=== PATIENT | female | born 1990 | race Caucasian/White ===

== ENCOUNTER 2021-08-20 14:50 | Outpatient (RCR) | payer OTHER, SELFPAY ==
[2021-07-16 12:10] VITALS: BP 104/68; PULSE 81
[2021-07-19 16:07] VITALS: BP 114/69; PULSE 93
[2021-07-23 08:29] VITALS: BP 101/59; PULSE 99
--- NOTE | 2021-07-26 08:45 | PC.NURSE ---
Dr Zhong notified of non-reactive NST. Order for BPP and Accu check. May dc home if BPP is 8/8.
[2021-07-26 08:53] LABS: Glucose Point of Care 143 mg/dl (65-105)
[2021-07-26 09:20] VITALS: BP 102/61
[2021-07-30 08:05] VITALS: BP 124/74; PULSE 85
[2021-08-02 11:03] VITALS: BP 116/62; PULSE 89
[2021-08-06 16:00] VITALS: BP 114/74; PULSE 89
[2021-08-09 13:49] VITALS: BP 116/69; PULSE 81
[2021-08-13 15:54] VITALS: BP 113/65; PULSE 85
[2021-08-16 15:50] VITALS: BP 108/67; PULSE 84
--- NOTE | ~2021-08-20 | US_ITS ---
EXAMINATION: US OB BPP wo non-stress EXAM DATE: 08/20/2021 16:11 INDICATION: Gestational diabetes. 3rd trimester. TECHNIQUE: Pelvic obstetrical transabdominal sonogram was performed by a technologist. There are mu ltiple grayscale and Doppler images available for interpretation. There are no earlier studies of th is gestation for comparison. FINDINGS: There is a single fetus identified in vertex presentation with a heart rate of 147 beats pe r minute. The placenta is located in the posterior position. There is no sonographic evidence of ret roplacental hemorrhage identified. BIOPHYSICAL PROFILE (performed by the technologist) breathing (30 sec sustained breathing in 30 minutes): 2 out of 2 movement (3 gross body movements in 30 minutes): 2 out of 2 tone (one episode of jhxhepk-ccdlapkds-hsaiipp limb movement): 2 out of 2 Amniotic fluid pocket (2 cm): 2 out of 2 Total score: 8 out of 8 IMPRESSION: 1. Single fetus with heart rate of 147 bpm. 2. Normal biophysical profile score of 8 out of 8. Reviewed, dictated and finalized at location B. R TRANSPORTATION WORKER
--- NOTE | ~2021-08-20 | US_ITS ---
EXAMINATION: US OB BPP wo non-stress EXAM DATE: 08/06/2021 16:03 INDICATION: GDM BPP 3rd trimester. TECHNIQUE: Pelvic obstetrical transabdominal sonogram was performed by a technologist. There are mu ltiple grayscale and Doppler images available for interpretation. Comparison is made to prior examina tion from 07/26/2021. FINDINGS: There is a single fetus identified in vertex presentation with a heart rate of 156 beats pe r minute. The placenta is located in the posterior position. There is no sonographic evidence of ret roplacental hemorrhage identified. The amniotic fluid index is 13.9 centimeters, which is normal. BIOPHYSICAL PROFILE (performed by the technologist) breathing (30 sec sustained breathing in 30 minutes): 2 out of 2 movement (3 gross body movements in 30 minutes): 2 out of 2 tone (one episode of auvvefk-xpujqsyts-jdijakd limb movement): 2 out of 2 Amniotic fluid pocket (2 cm): 2 out of 2 Total score: 8 out of 8 IMPRESSION: 1. Single fetus with heart rate of 156 bpm. 2. Normal biophysical profile score of 8 out of 8. Reviewed, dictated and finalized at location A. STOCK EXHIBITOR
--- NOTE | ~2021-08-20 | US_ITS ---
EXAMINATION: US OB BPP wo non-stress EXAM DATE: 07/16/2021 12:01 INDICATION: Type II DM DM TYPE 2. 3rd trimester. TECHNIQUE: Pelvic obstetrical transabdominal sonogram was performed by a technologist. There are mu ltiple grayscale and Doppler images available for interpretation. Comparison is made to prior examina tion from 03/06/2019. FINDINGS: There is a single fetus identified in vertex presentation with a heart rate of 138 beats pe r minute. The placenta is located in the posterior position. There is no sonographic evidence of ret roplacental hemorrhage identified. BIOPHYSICAL PROFILE (performed by the technologist) breathing (30 sec sustained breathing in 30 minutes): 2 out of 2 movement (3 gross body movements in 30 minutes): 2 out of 2 tone (one episode of qtuyugw-zfmgsvmrb-xmttjws limb movement): 2 out of 2 Amniotic fluid pocket (2 cm): 2 out of 2 Total score: 8 out of 8 IMPRESSION: 1. Single fetus with heart rate of 138 bpm. 2. Normal biophysical profile score of 8 out of 8. Reviewed, dictated and finalized at location B. THINNER
--- NOTE | ~2021-08-20 | US_ITS ---
EXAMINATION: US OB BPP wo non-stress DATE: 07/26/2021 09:12 INDICATION: Nonreactive nonstress test. Third trimester. TECHNIQUE: Real-time pelvic ultrasound was performed. COMPARISON: Ultrasound 07/16/2021 FINDINGS: There is a single living fetus in vertex presentation. The placenta is posterior. heart rate i s 147 beats per minute (bpm). Biophysical profile performed by the technologist: breathing (30 sec sustained breathing in 30 minutes): 2 out of 2 movement (3 gross body movements in 30 minutes): 2 out of 2 tone (one episode of tsdzxyn-ahwlxiwqo-qqodcuo limb movement): 2 out of 2 Amniotic fluid pocket (2 cm): 2 out of 2 Total score: 8 out of 8 IMPRESSION: 1. Single living fetus in vertex presentation. 2. Biophysical profile 8 out of 8. Reviewed, dictated and finalized at location A. ICATOR FOAM RUBBER
--- NOTE | ~2021-08-20 | US_ITS ---
EXAMINATION: US OB BPP wo non-stress EXAM DATE: 08/13/2021 15:57 INDICATION: Diabetic GDM . 3rd trimester. TECHNIQUE: Pelvic obstetrical transabdominal sonogram was performed by a technologist. There are mu ltiple grayscale and Doppler images available for interpretation. Comparison is made to prior examina tion from 08/06/2021. FINDINGS: There is a single fetus identified in vertex presentation with a heart rate of 159 beats pe r minute. The placenta is located in the posterior position. There is no sonographic evidence of ret roplacental hemorrhage identified. There is subjectively expected amount of amniotic fluid. BIOPHYSICAL PROFILE (performed by the technologist) breathing (30 sec sustained breathing in 30 minutes): 2 out of 2 movement (3 gross body movements in 30 minutes): 2 out of 2 tone (one episode of vjjfbtw-dcjuuzpki-ypifgzl limb movement): 2 out of 2 Amniotic fluid pocket (2 cm): 2 out of 2 Total score: 8 out of 8 IMPRESSION: 1. Single fetus with heart rate of 159 bpm. 2. Normal biophysical profile score of 8 out of 8. Reviewed, dictated and finalized at location A. RMATION MANAGEMENT OFFICER
[2021-08-20 15:36] VITALS: BP 115/75; PULSE 84
== END 2021-09-03 20:36 | disposition home or self-care (01) ==
LOC: ANHOBOP 14:50
PROVIDERS: PCP Internal Medicine; Visit Provider Obstetrics & Gynecology
DX: O16.3 Unspecified maternal hypertension, third trimester (principal); O24.913 Unspecified diabetes mellitus in pregnancy, third trimester; Z3A.33 33 weeks gestation of pregnancy; Z3A.34 34 weeks gestation of pregnancy; Z3A.35 35 weeks gestation of pregnancy; Z3A.36 36 weeks gestation of pregnancy
CPT/HCPCS: 59025; 76819; 82948

== ENCOUNTER 2021-08-21 08:21 | Outpatient (CLI) | payer OTHER, SELFPAY ==
[2021-08-21 08:51] LABS: Basophils Absolute Auto 0.1 K/mm3 (0.0-0.1); Basophils Percent Auto 0.7 % (0.2-1.2); Eosinophils Absolute Auto 0.4 K/mm3 (0-0.3); Eosinophils Percent Auto 3.1 % (0-4.4); Hematocrit 37.9 % (37.0-47.0); Hemoglobin 12.6 g/dL (12.0-15.0); Immature Granulocyte Absolute 0.06 K/mm3 (0.00-0.031); Immature Granulocyte Percent A 0.5 % (0-0.5); Lymphocytes Absolute Auto 2.85 K/mm3 (0.9-3.2); Lymphocytes Percent Auto 24.5 % (18.3-44.2); Mean Corpuscular HGB Conc 33.2 g/dl (32-36); Mean Corpuscular Hemoglobin 27.3 pg (26-34); Monocytes Absolute Auto 0.5 K/mm3 (0.1-0.6); Monocytes Percent Auto 4.5 % (2.6-8.5); Neutrophils Absolute Auto 7.8 K/mm3 (1.3-6.7); Neutrophils Percent Auto 66.7 % (45.5-73.1); Platelet Count Result 304 k/mm3 (150-375); Red Blood Count 4.62 M/mm3 (4.2-5.4); Red Cell Distribution Width 14.3 % (11.5-14.5); White Blood Count 11.6 K/mm3 (4.5-10.0)
[2021-08-23 10:55] LABS: Rapid Plasma Reagin Non-Reactive (NonReactive)
== END 2021-08-21 08:22 | disposition home or self-care (01) ==
PROVIDERS: PCP Internal Medicine; Visit Provider Obstetrics & Gynecology
DX: Z01.818 Encounter for other preprocedural examination (principal)
CPT/HCPCS: 36415; 85025; 86592; 86850; 86900; 86901

== ENCOUNTER 2021-08-23 05:27 | Inpatient (IN) | payer OTHER, SELFPAY ==
[2021-08-23] VITALS (57 sets, daily range): BP systolic 87–123; BP diastolic 49–77; PULSE 47–80; RESP 10–18; TEMP 36.2–36.8; O2SAT 94–100; BMI 43.4
--- OUTSIDE RECORDS SUMMARY | 2021-08-23 05:32 | XMS_ITS | Encounter Summary ---
:1990 Author Care Team Providers Name Role Phone Chris Vidales MD Primary Care Provider [phone] Reason for Visit return OB visit Assessment and Plan 1. Gestational diabetes mellitus Discussion Note: None recorded.Patient educational handouts: No information available. Plan of Care Reminders Provider Appointments None ? ? recorded. Lab None ? ? recorded. Referral None ? ? recorded. Procedures None ? ? recorded. Surgeries None ? ? recorded. Imaging None ? ? recorded. Medications Name Start Date ? ? Afluria Quad 6466-9122 (PF) 60 mcg (15 mcg x 4)/0.5 mL IM syringe ? ADM 0.5ML IM UTD aspirin 81 mg tablet,delayed release ? Take 1 tablet every day by oral route. BD Ultra-Fine Kat Pen Needle 32 gauge x 5/32 ? BD Ultra-Fine Short Pen Needle 31 gauge x 5/16 ? USE FOR 2 INJECTIONS DAILY WITH INSULIN PENS Flucelvax Quad (PF) 60 mcg (15 mcg x 4)/0.5 mL IM syringe ? ADM 0.5ML IM UTD GlucaGen HypoKit 1 mg Injection ? Humalog KwikPen (U-100) Insulin 100 unit/mL subcutaneo us ? INJECT 6 UNITS UNDER THE SKIN WITH DINNER Humulin N NPH U-100 Insulin KwikPen 100 unit/mL (3 mL) subcutaneous ? ADMINISTER 10 UNITS UNDER THE SKIN DAILY labetalol 200 mg tablet ? OneTouch Verio test strips ? Ventolin HFA 90 mcg/actuation
--- OUTSIDE RECORDS SUMMARY | 2021-08-23 05:32 | XMS_ITS ---
:1990 Author Care Team Providers Name Role Phone OSMAN DACOSTA MD Primary Care Provider [phone] Allergies Code Code System Name Reaction Severity Status Onset NKDA ? Medications Name Status Start Date Stop Date ? ? Afluria Quad 8370-4510 (PF) 60 mcg (15 mcg x 4)/0.5 mL IM syring e Active ? Not available ADM 0.5ML IM UTD amoxicillin 875 mg-potassium Completed ? clavulanate 125 mg tablet aspirin 81 mg tablet,delayed release Active ? Not available Take 1 tablet every day by oral route. atorvastatin 10 mg tablet Completed ? 2018 azithromycin 250 mg tablet Completed ? 06/22 BD Ultra-Fine Mini Pen Needle 31 gauge Unknown ? Not available x 10/13 BD Ultra-Fine Kat Pen Needle 32 gauge Active ? Not available x BD Ultra-Fine Short Pen Needle 31 gauge x 16 Active ? Not available USE FOR 2 INJECTIONS DAILY WITH INSULIN PENS Bydureon BCise 2 mg/0.85 mL Completed ? 12/30 subcutaneous auto-injector codeine 10 mg-guaifenesin 100 mg/5 mL Completed ? 10/06/2017 oral liquid diclofenac sodium 75 mg tablet,delayed release Completed ? 06/22/2020 TAKE ONE TABLET DAILY Estarylla 0.25 mg-35 mcg tablet Completed ? 01/18/2021 Flucelvax Quad (PF) 60 mcg (15 mcg x 4)/0.5 mL IM syri nge Active ? Not available ADM 0.5ML IM UTD gatifloxacin 0.5 % eye drops Completed ? INT 1 GTT INTO OU QID FOR 5 DAYS
--- OUTSIDE RECORDS SUMMARY | 2021-08-23 05:32 | XMS_ITS | Encounter Summary ---
:1990 Author Care Team Providers Name Role Phone hCris Vidales MD Primary Care Provider [phone] Reason for Visit return OB visit Assessment and Plan 1. Gestational diabetes mellitus ? section (SURG) Discussion Note: None recorded.Patient educational handouts: No information available. Plan of Care Reminders Provider Appointments None ? ? recorded. Lab None ? ? recorded. Referral None ? ? recorded. Procedures None ? ? recorded. Surgeries ? Section (SURG) 06/21/2021 Imaging None ? ? recorded. Medications Name Start Date ? ? Afluria Quad 0956-0621 (PF) 60 mcg (15 mcg x 4)/0.5 [...]
--- OUTSIDE RECORDS SUMMARY | 2021-08-23 05:32 | XMS_ITS | Encounter Summary ---
:1990 Author Care Team Providers Name Role Phone hCris Vidales MD Primary Care Provider [phone] Reason for Visit return OB visit Assessment and Plan 1. Routine care ? HIV (1+2) Ab screen, serum ? hemoglobin + hematocrit, b lood Discussion Note: None recorded.Patient educational handouts: No information available. Plan of Care Reminders Provider Appointments None recorded. ? ? Lab HIV (1+2) Ab [facility] Screen, Serum 05/25/2021 [facility] (Lab) ? Hemoglobin + [facility] Hematocrit, Blood 05/25/2021 [facility] (Lab) Referral None recorded. ? ? Procedures None recorded. ? ? Surgeries None recorded. ? ? Imaging None recorded. ? ? Medications Name Start Date ? ? Afluria Quad 9555-0900 (PF) 60 mcg (15 mcg x 4)/0.5 mL IM syringe ? ADM 0.5ML IM UTD aspirin 81 mg tablet,delayed release ? Take 1 tablet every day by oral route. BD Ultra-Fine Kat Pen Needle 32 gauge x 5/32 ? BD Ultra-Fine Short Pen Needle 31 gauge x 5/16 ? USE FOR 2 INJECTIONS DAILY WITH INSULIN PENS Flucelvax Quad 5447-2789 (PF) 60 mcg (15 mcg x 4)/0.5 mL IM syringe ? ADM 0.5ML IM UTD
--- OUTSIDE RECORDS SUMMARY | 2021-08-23 05:32 | XMS_ITS ---
:1990 Author Care Team Providers Name Role Phone OSMAN DACOSTA MD Primary Care Provider Unavailable Allergies Code Code System Name Reaction Severity Status Onset NKDA ? Medications Name Status Start Date Stop Date ? ? Afluria Quad (PF) 60 mcg (15 mcg x 4)/0.5 mL IM syring e Active ? Not available ADM 0.5ML IM UTD amoxicillin 875 mg-potassium Completed ? clavulanate 125 mg tablet atorvastatin 10 mg tablet Completed ? 2018 azithromycin 250 mg tablet Completed ? 06/22 BD Ultra-Fine Mini Pen Needle 31 gauge Unknown ? Not available x 10/13 BD Ultra-Fine Short Pen Needle 31 gauge Active ? Not available x 12/13 Bydureon BCise 2 mg/0.85 mL Active ? Not available subcutaneous auto-injector codeine 10 mg-guaifenesin 100 mg/5 mL Completed ? 10/06/2017 oral liquid diclofenac sodium 75 mg tablet,delayed release Completed ? 06/22/2020 TAKE ONE TABLET DAILY Estarylla 0.25 mg-35 mcg tablet Active ? Not available Flucelvax Quad (PF) 60 mcg (15 mcg x 4)/0.5 mL IM syri nge Active ? Not available ADM 0.5ML IM UTD gatifloxacin 0.5 % eye drops Active ? Not available INT 1 GTT INTO OU QID FOR 5 DAYS Humalog KwikPen (U-100) Insulin 100 Completed ? 04/12/2019 unit/mL subcutaneous Humalog U-100 Insulin 100 unit/mL Completed ? 04/12/2019 subcutaneous solution Humulin N NPH U-100 Insulin (is
--- OUTSIDE RECORDS SUMMARY | 2021-08-23 05:32 | XMS_ITS | Encounter Summary ---
:1990 Author Care Team Providers Name Role Phone Chris Vidales MD Primary Care Provider [phone] Reason for Visit return OB visit Assessment and Plan 1. Routine care ? streptococcus group B, cul ture, vaginal or rectal Discussion Note: None recorded.Patient educational handouts: No information available. Plan of Care Reminders Provider Appointments None recorded. ? ? Lab Streptococcus [facility] Group B, Culture, V[facility] or Rectal Referral None recorded. ? ? Procedures None recorded. ? ? Surgeries None recorded. ? ? Imaging None recorded. ? ? Medications Name Start Date ? ? Afluria Quad 5084-2730 (PF) 60 mcg (15 mcg x 4)/0.5 mL IM syringe ? ADM 0.5ML IM UTD aspirin 81 mg tablet,delayed release ? Take 1 tablet every day by oral route. BD Ultra-Fine Kat Pen Needle 32 gauge x 5/32 ? BD Ultra-Fine Short Pen Needle 31 gauge x 5/16 ? USE FOR 2 INJECTIONS DAILY WITH INSULIN PENS Flucelvax Quad 4749-5158 (PF) 60 mcg (15 mcg x 4)/0.5 mL IM syringe ? ADM 0.5ML IM UTD GlucaGen HypoKit 1 mg Injection ? Humalog KwikPen (U-100) Insulin 100 unit/mL subcutaneo us ? INJECT 6 UNITS UNDER THE SKIN WITH DINNER Humulin N NPH U-100 Insulin KwikPen 100 unit/mL (3 mL)
[2021-08-23] MEDS: LACTATED RINGERS 1,000 ML 125 ML IV CONT ×2 (06:01→07:16)
--- NOTE | 2021-08-23 06:14 | LDADM ---
This patient, Re Ruggiero, was admitted to Labor/Delivery/Recovery 120 on 08/23/21 at 05:27. Plans for labor, pain management and were discussed with patient. Patient/family oriented to hospital policies and general routines including ID bracelet, bed and alarms, visiting hours, pain management, procedures, bathroom and other care routines, personal items, smoking policy, room service/diet and guest tray routines, security routines, and visiting hours. Patient/Family are encouraged to report perceived risks to care and to ask questions if they do not understand what they are told or what they should do. See OBIX for further documentation.
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
--- NOTE | 2021-08-23 06:47 | WPDHPUPDATE1 ---
History and Physical Update Update Date/Time: 08/23/21 06:47 History and Physical has been reviewed, including an updated exam of the patient. There are NO changes in the patient's condition. Risks, benefits, and alternatives have been discussed and questions answered. Patient agrees to proceed with procedure.
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
[2021-08-23 07:26] LABS: Glucose Point of Care 72 mg/dl (65-105)
[2021-08-23] MEDS: ceFAZolin 3 GM/D5W 100 ML 100 ML IVPB (07:27)
--- NOTE | 2021-08-23 08:27 | P.PCNOB_ITS ---
OB - Delivery Note Procedure Delivery date: 08/23/21 Procedure: Procedures Operation Date: 08/23/21 07:30 <No data on this case meets the specified criteria> Route of delivery: Specimen: Yes Quantitative Blood Loss (ml): 600 Anesthesia type: Spinal Disposition: PACU Narrative: Patient prepped and draped in usual manner for this procedure. Pfannenstiel incision was made and carried down to the fascia. This was extended bilaterally the length of the skin incision. peritoneum was entered without difficulty and bladder flap was developed. Uterus scored and extended the lower segment. Clear fluid was noted vertex was delivered without difficulty. Rest of baby was delivered cord clamped and cut placenta was removed manually and the uterus was exteriorized. Uterine incision was closed using 0 Monocryl running interlocking manner with a nigqwt-ao-lbojy suture on 1 small area of bleeding on the left ankle. Uterus returned to the abdomen hemostasis was achieved. Carmella was placed empirically and the lower segment. All subfascial tissue was evaluated and noted to be hemostatic and the fascia was approximated using 0 Vicryl from left angle midline the right angle to midline. Subcutaneous tissue was hemostatic approximated using 0 plain and berlin were then used to approximate skin edges. Patient was then sent to recovery room in stable condition. [place] Baby Weeks of gestation at delivery: 39 gender: Female Weight (pounds): 8 Weight (ounces): 15 score one minute: 8 score five minutes: 9 AMG Delivery Billing Delivery Delivery: Delivery Charge
[2021-08-23] MEDS: OXYTOCIN 30 UNITS/NS 500 ML 30 UNITS/500 ML BAG 125 UNITS IV CONT (09:47)
--- NOTE | 2021-08-23 10:52 | OBPPTRN ---
Patient transferred to post room # 288 via stretcher and transferred to bed via maxi air without difficulty. and Support person present. Oriented to unit, room, information board, rooming in, admission packet and security measures. PT introductions made and plan of care discussed per post op c section, pain management, bottle feeding, daily care activities and blood sugars for mom and baby. PT received such instructions per one to one discussion, mom baby care guide and demonstrations. mom and spouse both recipients of such instructions and no barriers to learning identified this shift. Patient verbalizes understanding.
--- NOTE | 2021-08-23 14:30 | PC.NURSE ---
PT took own glucometer reading with her own supplies post prandial and the result was 87
[2021-08-23] MEDS: DEXTROSE 5%/0.45% SOD CHL 1,000 ML 125 ML IV CONT (15:30)
[2021-08-23] MEDS: SIMETHICONE 80 MG TAB.CHEW PO (15:45)
[2021-08-23] MEDS: KETOROLAC 30 MG/ML VIAL (*BKC) IV PUSH (15:45)
[2021-08-23] MEDS: DOCUSATE SODIUM 100 MG CAPSULE PO (15:45)
[2021-08-23] MEDS: ACETAMINOPHEN 325 MG TABLET 650 MG PO ×2 (15:45→22:12)
--- NOTE | 2021-08-23 19:21 | PC.NURSE ---
Discussed with pt the order for insulin at dinner. Pt requests to waiting on insulin till post prandial blood sugar after dinner.
--- NOTE | 2021-08-23 20:46 | PC.NURSE ---
All documentation done for 08/23/21 at 1945 was done by Elvis Cabrales RN, not Faisal Smith RN who was logged into the computer.
[2021-08-23] MEDS: INSULIN HUMAN NPH (*BKC) 100 UNITS/ML 24 UNITS SUB-Q (21:56)
[2021-08-23] MEDS: LABETALOL HCL 100 MG TABLET PO (22:11)
[2021-08-24] VITALS (7 sets, daily range): BP systolic 111–122; BP diastolic 63–78; PULSE 71–87; RESP 16–18; TEMP 36.3–36.8; O2SAT 97–99
[2021-08-24] MEDS: ACETAMINOPHEN 325 MG TABLET 650 MG PO (04:57)
[2021-08-24] MEDS: INSULIN HUMAN NPH (*BKC) 100 UNITS/ML 6 UNITS SUB-Q (04:58)
[2021-08-24 05:18] LABS: Basophils Absolute Auto 0.1 K/mm3 (0.0-0.1); Basophils Percent Auto 0.6 % (0.2-1.2); Eosinophils Absolute Auto 0.4 K/mm3 (0-0.3); Eosinophils Percent Auto 3.5 % (0-4.4); Hematocrit 32.3 % (37.0-47.0); Hemoglobin 10.7 g/dL (12.0-15.0); Immature Granulocyte Absolute 0.02 K/mm3 (0.00-0.031); Immature Granulocyte Percent A 0.2 % (0-0.5); Lymphocytes Absolute Auto 3.16 K/mm3 (0.9-3.2); Lymphocytes Percent Auto 31.3 % (18.3-44.2); Mean Corpuscular HGB Conc 33.1 g/dl (32-36); Mean Corpuscular Hemoglobin 27.4 pg (26-34); Mean Corpuscular Volume 82.6 fl (80-100); Mean Platelet Volume 11.1 fl (7.4-10.4); Monocytes Absolute Auto 0.7 K/mm3 (0.1-0.6); Monocytes Percent Auto 6.4 % (2.6-8.5); Neutrophils Absolute Auto 5.9 K/mm3 (1.3-6.7); Platelet Count Result 256 k/mm3 (150-375); Red Blood Count 3.91 M/mm3 (4.2-5.4); Red Cell Distribution Width 14.3 % (11.5-14.5); White Blood Count 10.1 K/mm3 (4.5-10.0)
--- NOTE | 2021-08-24 06:00 | PC.NURSE ---
Pt checked her own FBS this am and noted to be 97 when administered her am 6u of nph.
[2021-08-24] MEDS: IBUPROFEN 600 MG TABLET PO ×3 (07:35→23:35)
[2021-08-24] MEDS: SIMETHICONE 80 MG TAB.CHEW PO ×3 (07:35→23:36)
[2021-08-24] MEDS: DOCUSATE SODIUM 100 MG CAPSULE PO ×2 (07:35→16:58)
[2021-08-24] MEDS: INSULIN ASPART (*BKC) 100 UNITS/ML SUB-Q ×2 (08:59→18:41)
[2021-08-24] MEDS: LABETALOL HCL 100 MG TABLET PO ×2 (09:03→20:08)
--- NOTE | 2021-08-24 09:41 | WPDANLDNPN2 ---
Anes-Prog Note L&D-Neuraxial Date/Time: 08/24/21 09:41 Neuraxial medications: intrathecal PF morphine Opiod-related complaints: none Patient feedback: Patient satisfied with post-operative pain management.
--- NOTE | 2021-08-24 09:42 | WPDANLDPN2 ---
Anes-Prog Note L&D Date/Time: 08/24/21 09:42 Comfortable throughout: section Neuraxial method: spinal Epidural/Spinal procedure site: clean & non-tender Neuro status: Neuro function grossly intact. Cardiovascular status: normal Respiratory status: normal Airway patency: baseline Mental status: baseline Post-Op hydration status: normal Vital Signs: Last Vital Signs Temp 36.5 C 08/24/21 07:51 Pulse 80 08/24/21 09:03 Resp 18 08/24/21 07:51 BP 117/68 08/24/21 07:51 Pulse Ox 98 08/24/21 07:51 Pain score (VAS): 0 I/O: Intake & Output 08/23/21 08/24/21 08/24/21 23:59 07:59 15:59 Intake Total 2500 1700 Output Total 2275 1200 Balance 225 500 Post-procedural complaints: none Patient feedback: Patient satisfied with anesthetic care.
--- NOTE | 2021-08-24 14:52 | PM.GYNPNOP ---
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 Assessment and plan (1) History of delivery: Code(s): Z98.891 - History of uterine scar from previous surgery Status: Acute Postoperative Procedures: Procedures Operation Date: 08/23/21 07:30 Actual Procedure Side Surgeon p Primary Section Haja Mahoney MD Postoperative day: 1 Postoperative status: doing well Postoperative plan: routine post-op care Time Spent With Patient Time: Total time spent is greater than 50% in coordination of care (as documented) at patient's floor/unit and/or counseling patient: Time with patient: less than 15 minutes MOLDED FR[employer]SEM[employer]ER- PN:Subj Post-Op Subjective Date/time seen: 08/24/21 14:52 diet tolerated. Ambulating and voiding without difficulty. Blood sugars have been less than 120-130 throughout. Pain well controlled. 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 - PN: Obj Data Vital Signs Vital Signs: Vital Signs - 24 hr 08/23/21 17:00 08/23/21 19:45 08/23/21 22:11 Temperature 98.3 F 98.0 F Pulse Rate 70 66 80 Respiratory Rate 18 16 Blood Pressure 117/70 119/68 Pulse Oximetry 99 99 08/24/21 00:40 08/24/21 04:35 08/24/21 07:51 Temperature 98.2 F 98.3 F 97.7 F Pulse Rate 74 72 71 Respiratory Rate 16 16 18 Blood Pressure 111/65 113/63 117/68 Pulse Oximetry 99 97 98 08/24/21 09:03 Temperature Pulse Rate 80 Respiratory Rate Blood Pressure Pulse Oximetry Intake/Output Intake/Output: Intake & Output 08/21/21 08/22/21 08/23/21 08/24/21 23:59 23:59 23:59 23:59 Intake Total 4700 2700 Output Total 3165 1800 Balance 1535 900 Meds/Results Medications: Active Medications Generic Name Dose Route Start Last Admin Trade Name Freq PRN Reason Stop Dose Admin Acetaminophen 650 mg 08/23/21 09:48 08/24/21 04:57 Acetaminophen 325 Mg Tablet PO 650 mg Q6H PRN Administration Mild Pain (1-3) Hydrocodone Bitart/Acetaminophen 1 tab 08/23/21 09:48 Hydrocodone/Acetaminophen (*Crx) 5-325 Mg Tablet PO Q3H PRN Moderate Pain (4-6) Hydrocodone Bitart/Acetaminophen 1 tab 08/23/21 09:48 Hydrocodone/Acetaminophen (*Crx) 10-325 Mg Tablet PO Q3H PRN Pain Rated 7-10 Bisacodyl 10 mg 08/23/21 09:48 Bisacodyl 10 Mg Suppository RECTAL ONCE PRN Constipation Dextrose 12.5 gm 08/23/21 09:50 Dextrose 50% 25 Gm/50 Ml Syringe IV PUSH PRN PRN Hypoglycemia Protocol Docusate Sodium 100 mg 08/23/21 09:48 08/24/21 07:35 Docusate Sodium 100 Mg Capsule PO 100 mg BID RICKY Administration Emollient Ointment 1 applic 08/23/21 09:48 Lanolin (Lansinoh) 7.5 Gm Cream TOPICAL PRN PRN Sore Nipples Glucagon 1 mg 08/23/21 09:50 Glucagon For Inj 1 Mg Vial IM PRN PRN Hypoglycemia Protocol Glucose 15 gm 08/23/21 09:50 Glucose Oral Gel 15 Gm Of Glucse In 37.5 Gm Tube PO PRN PRN Hypoglycemia Protocol Dextrose/Sodium Chloride 1,000 mls @ 125 mls/hr 08/23/21 09:48 08/24/21 02:30 Dextrose 5% Sodium Chloride 0.45% IV CONT Not Given .Q8H RICKY Potassium Chloride/Dextrose/Sod Cl 1,000 mls @ 125 mls/hr 08/23/21 09:48 08/24/21 02:30 Kcl 20 Meq/D5/0.45% Sod Chl IV CONT Not Given .Q8H RICKY Dextrose 1,000 mls @ 100 mls/hr 08/23/21 09:50 Dextrose 5% 1,000 Ml IVPB PRN PRN Hypoglycemia Protocol Ibuprofen 600 mg 08/23/21 09:48 08/24/21 13:51 Ibuprofen 600 Mg Tablet PO 600 mg Q6H PRN Administration Cramping Insulin Aspart 0 units 08/23/21 17:00 08/24/21 08:59 Insulin Aspart (*Bkc) 100 Units/Ml SUB-Q 4 units 0800,1700 RICKY Administration Insulin Human NPH 6 units 08/24/21 06:00 08/24/21 04:58 Insulin Human Nph (*Bkc) 100 Units/Ml SUB-Q 6 units 0600 RICKY Administration Insulin Human NPH 24 units 08/23/21 21:00 08/23/21 21:56 Insulin Human Nph (*Bkc) 100 Units/Ml SUB-Q 24 un
[2021-08-24] MEDS: INSULIN HUMAN NPH (*BKC) 100 UNITS/ML 24 UNITS SUB-Q (21:31)
[2021-08-24] MEDS: HYDROcodone/acetaminophen (*CRX) 5-325 MG TABLET 1 TAB PO (23:35)
[2021-08-25 00:06] VITALS: BP 137/87
[2021-08-25] MEDS: INSULIN HUMAN NPH (*BKC) 100 UNITS/ML 6 UNITS SUB-Q (05:51)
[2021-08-25] MEDS: SIMETHICONE 80 MG TAB.CHEW PO (07:24)
[2021-08-25] MEDS: IBUPROFEN 600 MG TABLET PO ×2 (07:24→13:36)
[2021-08-25] MEDS: DOCUSATE SODIUM 100 MG CAPSULE PO (07:25)
[2021-08-25 08:00] VITALS: BP 140/96; PULSE 75; RESP 18; TEMP 36.6; O2SAT 100
[2021-08-25 09:00] VITALS: PULSE 90
[2021-08-25] MEDS: LABETALOL HCL 100 MG TABLET PO (09:00)
[2021-08-25] MEDS: INSULIN ASPART (*BKC) 100 UNITS/ML SUB-Q (09:01)
--- NOTE | 2021-08-25 16:41 | PM.OBDSVD ---
DS: Admitting Diagnosis Discharge Date 08/25/2021 Admitting Diagnosis OB - DS: Summary OB Procedures : None OB Procedures Intrapartum: OB Procedures: : None Peripartum Data Procedures: Procedures Operation Date: 08/23/21 07:30 Actual Procedure Side Surgeon p Primary Section Haja Mahoney MD Time Spent with Patient Time attestation: Total time spent providing and/or coordinating discharge services: DS: Data Data Completed and Pending Pending studies at discharge: Pending at discharge 08/23/21 08:43 Surgical [PTH] Routine Discharge Plan Discharge Discharging Clinician: Haja Mahoney Patient Disposition: Home, Self-Care Activity: as tolerated Diet: diabetic Wound Care Instructions: other - see discharge instructions Discharge Instructions: apt early next week in office for staple removal/make sure goes home with staple removal kit/strips/etc Patient Instructions: Antibiotic Form Stand Alone Forms: General Discharge Information Follow-up/Referrals: Haja Mahoney MD [Physician] - 3 Weeks Discharge Medications: New hydrocodone-acetaminophen 5-325 mg Tablet 1 tablet PO Q3H PRN (Reason: Moderate Pain (4-6)) Qty: 20 RF: 0 labetalol 100 mg Tablet 100 mg PO Q12H Qty: 60 RF: 0 ibuprofen 600 mg Tablet 600 mg PO Q6H PRN (Reason: Cramping) Qty: 30 RF: 0 Continued labetalol 100 mg Tablet 100 mg PO Q12H RF: 0 27 mg iron- 0.8 mg Tablet 1 tablet PO DAILY RF: 0 Discontinued Humulin N NPH U-100 Insulin 12 unit subcut QACBREAK RF: 0 Humulin N NPH U-100 Insulin 100 unit/mL Suspension 48 unit SUBCUT HS RF: 0 Humalog U-100 Insulin 100 unit/mL Cartridge 8 unit SUBCUT QACBREAK RF: 0 insulin lispro [Humalog Pen] 100 unit/mL Insulin Pen 8 unit SUBCUT QACDINNER RF: 0 aspirin 81 mg Tablet 81 mg PO DAILY RF: 0 Date of admission: 08/23/21 05:27 Primary Care Provider: Sobeida,Chris Romero Admitting Provider: Haja Mahoney Attending physician on admission: Haja Mahoney Condition: Stable
--- NOTE | 2021-08-25 16:59 | PC.NURSE ---
Self care discharge instructions given to mother including Dr. Beltran discharge sheet. Pt. instructed to continue insulin per am. discussion with Dr. Mahoney. Pt. verbalized understanding. No questions or concerns voiced. Pt. teary eyed due to being transferred to [facility]. at side.
== END 2021-08-25 17:53 | disposition home or self-care (01) | DRG 786 ==
LOC: ANHLDR 05:30 → ANHOB2 10:56
PROVIDERS: Admitting Provider Obstetrics & Gynecology; PCP Internal Medicine; Visit Provider Obstetrics & Gynecology
PROC: 10D00Z1 Extraction of Products of Conception, Low, Open Approach (ICD-10-PCS; CPT 59514; principal; 2021-08-23 07:30)
DX: O34.219 Maternal care for unspecified type scar from previous cesarean delivery (principal); O24.12 Pre-existing type 2 diabetes mellitus, in childbirth; O10.92 Unspecified pre-existing hypertension complicating childbirth; O99.824 Streptococcus B carrier state complicating childbirth; O77.0 Labor and delivery complicated by meconium in amniotic fluid; Z3A.39 39 weeks gestation of pregnancy; Z37.0 Single live birth; Z79.4 Long term (current) use of insulin
CPT/HCPCS: 36415; 82948; 85025; 88307; A9270; J0131; J0690; J1815; J1885; J2274; J2370; J2405; J2590; J7120

== ENCOUNTER 2023-07-26 15:40 | Emergency (ER) | payer OTHER, SELFPAY ==
[2023-07-26 16:03] VITALS: BP 125/79; PULSE 88; RESP 16; TEMP 36.6; O2SAT 100
--- NOTE | 2023-07-26 16:10 | ECG_ITS ---
Measurements Intervals Fisher Rate: 80 P: 50 IA: 149 QRS: 21 QRSD: 83 T: 16 QT: 362 QTc: 420 Interpretive Statements SINUS RHYTHM WITH SINUS ARRHYTHMIA POOR R WAVE PROGRESSION NO PREVIOUS ECG AVAILABLE FOR COMPARISON Electronically Signed On 07-26-2023 21:10:48 EXECUTIVE TEAM LEADER by Antonia Torres M.D.
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
--- NOTE | 2023-07-26 18:15 | PC.NURSE ---
edp at bedside for ultrasound
== END 2023-07-26 18:57 | disposition home or self-care (01) ==
LOC: ANHED 18:43
PROVIDERS: Emergency Provider Student in an Organized Health Care Education/Training Program; PCP Nurse Practitioner Family
DX: S20.211A Contusion of right front wall of thorax, initial encounter (principal); O10.912 Unspecified pre-existing hypertension complicating pregnancy, second trimester; O24.912 Unspecified diabetes mellitus in pregnancy, second trimester; Z3A.17 17 weeks gestation of pregnancy; V89.2XXA Person injured in unspecified motor-vehicle accident, traffic, initial encounter
CPT/HCPCS: 93005; 99283

== ENCOUNTER 2023-10-05 14:11 | Outpatient (CLI) | payer OTHER, SELFPAY ==
[2023-10-05 14:35] LABS: Basophils Percent Auto 0.3 % (0.2-1.2); Eosinophils Absolute Auto 0.4 K/mm3 (0-0.3); Eosinophils Percent Auto 3.1 % (0-4.4); Hematocrit 36.2 % (37.0-47.0); Hemoglobin 11.8 g/dL (12.0-15.0); Immature Granulocyte Absolute 0.06 K/mm3 (0.00-0.031); Immature Granulocyte Percent A 0.5 % (0-0.5); Lymphocytes Absolute Auto 2.72 K/mm3 (0.9-3.2); Lymphocytes Percent Auto 23.4 % (18.3-44.2); Mean Corpuscular HGB Conc 32.6 g/dl (32-36); Mean Corpuscular Hemoglobin 28.2 pg (26-34); Mean Corpuscular Volume 86.4 fl (80-100); Mean Platelet Volume 10.6 fl (7.4-10.4); Monocytes Absolute Auto 0.6 K/mm3 (0.1-0.6); Monocytes Percent Auto 5.1 % (2.6-8.5); Neutrophils Absolute Auto 7.9 K/mm3 (1.3-6.7); Neutrophils Percent Auto 67.6 % (45.5-73.1); Platelet Count Result 280 k/mm3 (150-375); Red Blood Count 4.19 M/mm3 (4.2-5.4); Red Cell Distribution Width 13.9 % (11.5-14.5); White Blood Count 11.6 K/mm3 (4.5-10.0)
[2023-10-05 16:09] LABS: HIV 1/2 Ab P24 Ag Result Negative (Negative)
[2023-10-05 22:19] LABS: Hemoglobin A1C 5.5 % (<5.7)
== END 2023-10-05 14:12 | disposition home or self-care (01) ==
LOC: ANHLAB 14:12
PROVIDERS: PCP Nurse Practitioner Family; Visit Provider Obstetrics & Gynecology
DX: Z34.90 Encounter for supervision of normal pregnancy, unspecified, unspecified trimester (principal); Z3A.00 Weeks of gestation of pregnancy not specified
CPT/HCPCS: 36415; 83036; 85025; 86703; G0432

== ENCOUNTER 2023-12-15 08:20 | Outpatient (RCR) | payer OTHER, SELFPAY ==
[2023-11-10 09:50] VITALS: BP 121/74; PULSE 84
[2023-11-14 14:21] VITALS: BP 105/57; PULSE 81
[2023-11-17 09:00] VITALS: BP 103/66; PULSE 83
[2023-11-21 12:52] VITALS: BP 107/57; PULSE 80
[2023-11-24 09:41] VITALS: BP 103/60; PULSE 75
[2023-11-28 13:54] VITALS: BP 114/69; PULSE 79
[2023-12-01 14:15] VITALS: BP 114/63; PULSE 83
[2023-12-08 09:02] VITALS: BP 106/63; PULSE 83
[2023-12-12 12:53] VITALS: BP 110/70; PULSE 80
--- NOTE | ~2023-12-15 | US_ITS ---
EXAMINATION: US OB BPP wo non-stress DATE: 11/28/2023 13:55 INDICATION: Chronic hypertension and diabetes. Third trimester. TECHNIQUE: Real-time pelvic ultrasound was performed. COMPARISON: Ultrasound 11/14/2023 FINDINGS: There is a single living fetus in vertex presentation. The placenta is on the right. heart rat e is 137 beats per minute (bpm). The deepest vertical pocket is 5.1 cm, which is normal. Biophysical profile performed by the technologist: breathing (30 sec sustained breathing in 30 minutes): 2 out of 2 movement (3 gross body movements in 30 minutes): 2 out of 2 tone (one episode of jogvdia-ehdyzynjm-qlxtzzt limb movement): 2 out of 2 Amniotic fluid pocket (2 cm): 2 out of 2 Total score: 8 out of 8 IMPRESSION: 1. Single living fetus in vertex presentation. 2. Biophysical profile 8 out of 8. Reviewed, dictated and finalized at location A.
--- NOTE | ~2023-12-15 | US_ITS ---
EXAMINATION: US OB BPP wo non-stress DATE: 11/14/2023 14:09 CDT INDICATION: Diabetes TECHNIQUE: Real-time transabdominal obstetric ultrasound. FINDINGS: No prior studies for comparison. There is a single living fetus in vertex presentation. The placenta is posterior left without placen ta previa. cardiac activity and movement is noted with a heart rate of 140 beats per minute. Biophysical profile: breathin of 2 movement: 2 of 2 tone: 2 of 2 Amniotic flud pocket: 2 of 2 Total score: 8 of 8 IMPRESSION: 1. Single living intrauterine in vertex presentation. 2: Total biophysical profile score of 8/8. Reviewed, dictated and finalized at location B.
[2023-12-15 08:55] VITALS: BP 107/66; PULSE 84
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
== END 2024-01-15 08:23 | disposition home or self-care (01) ==
LOC: ANHOBOP 08:20
PROVIDERS: Visit Provider Obstetrics & Gynecology
DX: O16.3 Unspecified maternal hypertension, third trimester (principal); O24.419 Gestational diabetes mellitus in pregnancy, unspecified control; Z3A.32 32 weeks gestation of pregnancy; Z3A.33 33 weeks gestation of pregnancy; Z3A.34 34 weeks gestation of pregnancy; Z3A.35 35 weeks gestation of pregnancy; Z3A.36 36 weeks gestation of pregnancy; Z3A.37 37 weeks gestation of pregnancy
CPT/HCPCS: 59025; 76819

== ENCOUNTER 2023-12-20 08:54 | Outpatient (CLI) | payer OTHER, SELFPAY ==
[2023-12-20 09:09] LABS: Hematocrit 36.5 % (37.0-47.0); Hemoglobin 12.1 g/dL (12.0-15.0); Mean Corpuscular HGB Conc 33.2 g/dl (32-36); Mean Corpuscular Hemoglobin 27.5 pg (26-34); Platelet Count Result 251 k/mm3 (150-375); Red Cell Distribution Width 14.3 % (11.5-14.5); White Blood Count 10.8 K/mm3 (4.5-10.0)
[2023-12-20 15:21] LABS: Rapid Plasma Reagin Non-Reactive (NonReactive)
== END 2023-12-20 08:55 | disposition home or self-care (01) ==
LOC: ANHLAB 08:55
PROVIDERS: Visit Provider Obstetrics & Gynecology
DX: Z01.818 Encounter for other preprocedural examination (principal)
CPT/HCPCS: 36415; 85027; 86592; 86850; 86900; 86901

== ENCOUNTER 2023-12-21 05:25 | Inpatient (IN) | payer OTHER, SELFPAY ==
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
[2023-12-21] VITALS (46 sets, daily range): BP systolic 106–137; BP diastolic 68–97; PULSE 52–97; RESP 11–20; TEMP 36.4–36.8; O2SAT 97–100; BMI 43.7
[2023-12-21] MEDS: ACETAMINOPHEN 500 MG TABLET 1000 MG PO (05:52)
--- NOTE | 2023-12-21 06:10 | LDADM ---
This patient, Re Ruggiero, was admitted to Labor/Delivery/Recovery 120 on 12/21/23 at 05:25. Plans for labor, pain management and were discussed with patient. Patient/family oriented to hospital policies and general routines including ID bracelet, bed and alarms, visiting hours, pain management, procedures, bathroom and other care routines, personal items, smoking policy, room service/diet and guest tray routines, security routines, and visiting hours. Patient/Family are encouraged to report perceived risks to care and to ask questions if they do not understand what they are told or what they should do. See OBIX for further documentation.
[2023-12-21] MEDS: LACTATED RINGERS 1,000 ML 999 ML (06:21)
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
[2023-12-21] MEDS: FAMOTIDINE 20 MG/2 ML VIAL IV PUSH (06:55)
--- NOTE | 2023-12-21 06:55 | WPDHPUPDATE1 ---
History and Physical Update Update Date/Time: 12/21/23 06:55 History and Physical has been reviewed, including an updated exam of the patient. There are NO changes in the patient's condition. Risks, benefits, and alternatives have been discussed and questions answered. Patient agrees to proceed with procedure.
[2023-12-21] MEDS: LACTATED RINGERS 1,000 ML 125 ML IV CONT (07:10)
[2023-12-21] MEDS: ceFAZolin 3 GM/D5W 100 ML 100 ML IVPB (07:30)
[2023-12-21 07:32] LABS: HIV 1/2 Ab P24 Ag Result Negative (Negative)
--- NOTE | 2023-12-21 09:38 | P.PCNOB_ITS ---
OB - Delivery Note Procedure Delivery date: 12/21/23 Pre-op diagnosis: Chronic Hypertension, Diabetes Mellitus, Previous Delivery and Other (Undesired fertility) Post-op Diagnosis: Same Procedure Performed: Repeat Secondary branch: low cervical, transverse and Tubal Ligation (Bilateral salpingectomy) Surgeon: Haja Mahoney MD Anesthesia type: Spinal Description of Procedure/Findings: Patient was prepped and draped in the usual manner for this procedure. Pfannenstiel incision was made and carried down to the fascia. Fascia was then incised and extended the length of the abdominal incision. Superiorly and inferiorly this was then dissected away from the rectus muscles. At this point and through the rest of the case into the uterus entry dense thick adhesions were noted throughout and were taken down prior to the next layer being entered.. Teen a.m. was entered, and bladder flap was developed with a very thin lower segment noted. Vertex was delivered and the rest of baby was delivered without difficulty, cord clamped cut, baby was passed off the operative field. Uterus was exteriorized and placenta was removed. Initially uterus was atonic with bleeding, did respond to Pitocin and manual massage. Uterus was then closed using 0 Monocryl in a running manner good approximation h emostasis noted. There were 2 areas of oozing on the anterior portion of the uterus which were rendered hemostatic using 0 Monocryl [id number]-[id number] sutures. Mesial salpinx was then cauterized and cut bilaterally and the tubes were removed without difficulty. No bleeding in this area and hemostasis had been achieved. Uterus was returned to the abdomen gutters were cleared of serosanguineous fluid and clots and the uterine incision was again inspected and noted be hemostatic. There were small bleeders intermittently noted on the peritoneum and omentum in as an these were cauterized as encountered. Hematoma was placed throughout due to the raw areas encountered with adhesiolysis. At this point all of the sub fascial tissue did appear to be hemostatic and fascia was approximated using 0 Vicryl from the right angle to the midline and then from the left angle to midline with good approximation noted. Subcutaneous tissue was approximated 0 plain suture and [place] were then used to approximate the skin edges. Patient was then sent to recovery room in stable condition. Specimen: Yes (1. Placenta 2. Bilateral fallopian tubes) Estimated Blood Loss: 1,175 Drains: Yes (Nicholson catheter) Packing: No Pathology: Yes Complications: No immediate complications Condition: Stable Disposition: PACU [place] Baby Weeks of gestation at delivery: 38 gender: Female presentation: vertex
[2023-12-21] MEDS: OXYTOCIN 30 UNITS/NS 500 ML 30 UNITS/500 ML BAG 125 UNITS IV CONT (10:25)
[2023-12-21] MEDS: LORATADINE 10 MG TABLET (10:34)
--- NOTE | 2023-12-21 11:26 | OBPPTRN ---
Patient transferred to post room #292 via stretcher. Support person present. Oriented to unit, room, information board, rooming in, admission packet and security measures. Patient verbalizes understanding.
[2023-12-21] MEDS: SIMETHICONE 80 MG TAB.CHEW PO ×2 (13:18→17:04)
[2023-12-21] MEDS: KETOROLAC 15 MG/ML VIAL (*BKC) IV PUSH ×2 (13:18→20:21)
[2023-12-21] MEDS: ACETAMINOPHEN 325 MG TABLET 650 MG PO ×2 (13:19→20:23)
--- NOTE | 2023-12-21 14:04 | PC.NURSE ---
Addendum entered by Marie Sims RN 12/21/23 14:05: Introductions were made with the mother with family present in the room. Discussed the plans to bottle feed her infant and EBM in a bottle is part of her plan. Encouraged initiating pumping related to infant being moved to level II care on the first floor nursery. Dr. Zacarias is present on the unit. Original Note: [id number] Breast pump provided due to separation. Instructions given on cleaning, care, usage, that there should be no pain, pumping schedule for milk production, collection, and storage of human milk. Patient was assessed for correct placement, flange size (24mm), to pump for comfort and nipple stretching/stimulation for adequate milk production every 3 hours (8 times in 24 hours) 1-2 times at night. Mother voiced understanding of the education shared along with mom/baby guide and the pump measurement, flange fit handout for additional resource information.
[2023-12-21] MEDS: DEXTROSE 5%/0.45% SOD CHL 1,000 ML 125 ML IV CONT (14:52)
[2023-12-21] MEDS: DOCUSATE SODIUM 100 MG CAPSULE PO (17:04)
[2023-12-21] MEDS: metFORMIN HCL 500 MG TABLET 1000 MG PO (20:24)
[2023-12-21] MEDS: LABETALOL HCL 100 MG TABLET 200 MG PO (20:26)
[2023-12-22 04:30] VITALS: BP 110/63; PULSE 89; RESP 16; TEMP 36.6; O2SAT 100
[2023-12-22 05:27] LABS: Basophils Percent Auto 0.2 % (0.2-1.2); Eosinophils Absolute Auto 0.3 K/mm3 (0-0.3); Eosinophils Percent Auto 2.5 % (0-4.4); Hematocrit 31.1 % (37.0-47.0); Immature Granulocyte Absolute 0.05 K/mm3 (0.00-0.031); Immature Granulocyte Percent A 0.5 % (0-0.5); Lymphocytes Percent Auto 15.7 % (18.3-44.2); Mean Corpuscular HGB Conc 32.2 g/dl (32-36); Mean Corpuscular Volume 83.8 fl (80-100); Mean Platelet Volume 11.7 fl (7.4-10.4); Monocytes Absolute Auto 0.4 K/mm3 (0.1-0.6); Monocytes Percent Auto 3.7 % (2.6-8.5); Neutrophils Absolute Auto 8.4 K/mm3 (1.3-6.7); Neutrophils Percent Auto 77.4 % (45.5-73.1); Platelet Count Result 226 k/mm3 (150-375); Red Blood Count 3.71 M/mm3 (4.2-5.4); Red Cell Distribution Width 14.2 % (11.5-14.5); White Blood Count 10.8 K/mm3 (4.5-10.0)
[2023-12-22 05:36] LABS: Alanine Aminotransferase 15 U/L (6-35); Albumin Level 2.6 g/dL (3.5-5.1); Alkaline Phosphatase 127 U/L (38-126); Anion Gap 5 mmol/L (4-12); Aspartate Amino Transferase 31 U/L (14-36); Bilirubin,Total 0.6 mg/dL (0.2-1.3); Blood Urea Nitrogen 10 mg/dL (7-17); Calcium 8.4 mg/dL (8.4-10.2); Carbon Dioxide 19 mmol/L (22-30); Chloride 106 mmol/L (98-107); Estimated CRCL calculation 134 ml/min; Estimated Glomerular Filt Rate > 60; Glucose 134 mg/dL (65-110); Potassium 3.9 mmol/L (3.4-5.0); Sodium 130 mmol/L (137-145)
[2023-12-22] MEDS: ACETAMINOPHEN 325 MG TABLET 650 MG PO ×3 (06:55→21:21)
[2023-12-22] MEDS: IBUPROFEN 600 MG TABLET PO ×3 (06:55→21:21)
[2023-12-22 08:00] VITALS: BP 121/77; PULSE 96; RESP 16; TEMP 37; O2SAT 96
[2023-12-22] MEDS: SIMETHICONE 80 MG TAB.CHEW PO ×3 (08:17→16:43)
[2023-12-22] MEDS: DOCUSATE SODIUM 100 MG CAPSULE PO ×2 (08:17→16:43)
[2023-12-22 08:18] VITALS: PULSE 100
[2023-12-22] MEDS: MULTIVIT/MIN/PREN/FOL AC/IRON TABLET 1 TAB PO (08:18)
[2023-12-22] MEDS: LABETALOL HCL 100 MG TABLET 200 MG PO ×2 (08:18→21:20)
[2023-12-22] MEDS: INSULIN GLARGINE (*BKC) 100 UNITS/ML 12 UNITS SUB-Q (08:41)
--- NOTE | 2023-12-22 12:28 | PM.OBDSVD ---
DS: Admitting Diagnosis Discharge Date December 23, 2023 Admitting Diagnosis DS: Discharge Diagnosis Discharge Diagnosis (1) , delivered: Code(s): O80 - Encounter for full-term uncomplicated delivery Status: Acute OB - DS: Summary OB Procedures : None OB Procedures Intrapartum: and Tubal ligation OB Procedures: : None Peripartum Data Procedures: Procedures Operation Date: 12/21/23 07:30 Actual Procedure Side Surgeon p Repeat Section with Tubal Ligation Haja Mahoney MD Time Spent with Patient Time attestation: Total time spent providing and/or coordinating discharge services: DS: Data Data Completed and Pending Pending studies at discharge: Pending at discharge 12/21/23 08:12 Surgical [PTH] Routine Surgical [PTH] Routine Labs on day of discharge: Labs from last 24 hours 12/22/23 12/21/23 04:14 06:07 WBC 10.8 H RBC 3.71 L Hgb 10.0 L Hct 31.1 L MCV 83.8 MCH 27.0 MCHC 32.2 RDW 14.2 Plt Count 226 MPV 11.7 H Immature Gran % (Auto) 0.5 Neut % (Auto) 77.4 H Lymph % (Auto) 15.7 L Christian % (Auto) 3.7 Eos % (Auto) 2.5 Baso % (Auto) 0.2 Lymph # (Auto) 1.70 Christian # (Auto) 0.4 Eos # (Auto) 0.3 Baso # (Auto) 0.0 Abs Immat Gran (auto) 0.05 H Absolute Neuts (auto) 8.4 H Absolute Nucleated RBC 0.000 Nucleated RBC % 0.0 Sodium 130 L Potassium 3.9 Chloride 106 Carbon Dioxide 19 L Anion Gap 5 BUN 10 Creatinine 0.70 Estim Creat Clear Calc 134 Estimated GFR > 60 Glucose 134 H Calcium 8.4 Total Bilirubin 0.6 AST 31 ALT 15 Alkaline Phosphatase 127 H Total Protein 5.0 L Albumin 2.6 L RPR Cancelled Discharge Plan Discharge Discharging Clinician: Haja Mahoney Patient Disposition: Home, Self-Care Activity: no straining, no driving, follow weight bearing status and pelvic rest Diet: diabetic Wound Care Instructions: follow printed instructions Discharge Instructions: Return office next week for bandage removal/staple removal Patient Instructions: Antibiotic Form Stand Alone Forms: General Discharge Information Follow-up/Referrals: Haja Mahoney MD [Physician] - 3 Weeks Discharge Medications: New hydrocodone-acetaminophen 5-325 mg Tablet 1 tablet PO Q3H PRN (Reason: Breakthrough Pain Rated 4-6) Qty: 20 0RF ibuprofen 600 mg Tablet 600 mg PO Q6H Qty: 30 0RF Continued insulin glargine-yfgn [Semglee(insulin glarg-yfgn)Pen] 100 unit/mL (3 mL) insulin pen 12 unit subcut DAILY labetalol 100 mg tablet 200 mg PO Q12H PNV cmb#95-ferrous fumarate-FA [] 28 mg iron- 800 mcg Tablet 1 tablet PO DAILY Discontinued Lyumjev KwikPen U-100 Insulin 100 unit/mL insulin pen 10 unit subcut TID Rx Instructions: Takes before every meal aspirin 81 mg Capsule 81 mg PO DAILY Date of admission: 12/21/23 05:25 Primary Care Provider: PHYSICIAN,HOOP PUNCHER Admitting Provider: Haja Mahoney Attending physician on admission: Haja Mahoney Condition: Stable
--- NOTE | 2023-12-22 12:59 | WPDANLDPN2 ---
Anes-Prog Note L&D Date/Time: 12/22/23 12:59 Comfortable throughout: section Neuraxial method: spinal Epidural/Spinal procedure site: clean & non-tender Neuro status: Neuro function grossly intact. Cardiovascular status: normal Respiratory status: normal Airway patency: baseline Mental status: baseline Post-Op hydration status: normal Vital Signs: Last Vital Signs Temp 97.8 F 12/22/23 04:30 Pulse 100 12/22/23 08:18 Resp 16 12/22/23 04:30 BP 110/63 12/22/23 04:30 Pulse Ox 100 12/22/23 04:30 O2 Del Method Room Air 12/22/23 08:22 Pain score (VAS): 0/10 Post-procedural complaints: none Patient feedback: Patient satisfied with anesthetic care.
--- NOTE | 2023-12-22 12:59 | WPDANLDNPN2 ---
Anes-Prog Note L&D-Neuraxial Date/Time: 12/22/23 12:59 Neuraxial medications: intrathecal PF morphine Opiod-related complaints: none Patient feedback: Patient satisfied with post-operative pain management.
--- NOTE | 2023-12-22 15:41 | PC.NURSE ---
1455 - Purposefully rounded to assess for needs. mother shared her continued plan to pump for EBM and bottle feed. Mother is formula feeding her infant with a bottle until her full supply is to volume. Instructions given on cleaning, care, usage, that there should be no pain, pumping schedule for milk production, collection, and storage of human milk. Patient was assessed for correct placement, flange size, to pump for comfort and nipple stretching/stimulation for adequate milk production every 3 hours (8 times in 24 hours) 1-2 times at night. Mother voiced understanding of the education shared along with mom/baby guide and the pump handout with CDC recommendations for additional resource information. Reported to the Primary RN.
[2023-12-22 16:43] VITALS: BP 114/74; PULSE 84; RESP 18; TEMP 36.7; O2SAT 99
[2023-12-22 21:00] VITALS: BP 105/60; PULSE 76; RESP 16; TEMP 36.6; O2SAT 98
[2023-12-22 21:20] VITALS: PULSE 76
[2023-12-22] MEDS: metFORMIN HCL 500 MG TABLET 1000 MG PO (21:20)
[2023-12-23] MEDS: ACETAMINOPHEN 325 MG TABLET 650 MG PO (04:50)
[2023-12-23] MEDS: IBUPROFEN 600 MG TABLET PO (04:50)
[2023-12-23 08:40] VITALS: BP 129/87; PULSE 87; RESP 16; TEMP 36.3
[2023-12-23] MEDS: MULTIVIT/MIN/PREN/FOL AC/IRON TABLET 1 TAB PO (08:40)
[2023-12-23] MEDS: DOCUSATE SODIUM 100 MG CAPSULE PO (08:40)
[2023-12-23] MEDS: LABETALOL HCL 100 MG TABLET 200 MG PO (08:40)
[2023-12-23] MEDS: SIMETHICONE 80 MG TAB.CHEW PO (08:40)
[2023-12-23] MEDS: INSULIN GLARGINE (*BKC) 100 UNITS/ML 12 UNITS SUB-Q (08:40)
[2023-12-26 10:27] VITALS: BP 135/85; PULSE 78; RESP 18; TEMP 36.8; O2SAT 100
== END 2023-12-23 10:11 | disposition home or self-care (01) | DRG 783 ==
LOC: ANHLDR 05:28 → ANHOB2 11:31
PROVIDERS: Admitting Provider Obstetrics & Gynecology; Visit Provider Obstetrics & Gynecology
PROC: 10D00Z1 Extraction of Products of Conception, Low, Open Approach (ICD-10-PCS; CPT 59514; principal; 2023-12-21 07:30)
DX: O34.219 Maternal care for unspecified type scar from previous cesarean delivery (principal); O24.12 Pre-existing type 2 diabetes mellitus, in childbirth; O10.92 Unspecified pre-existing hypertension complicating childbirth; O98.52 Other viral diseases complicating childbirth; Z30.2 Encounter for sterilization; B00.9 Herpesviral infection, unspecified; N32.89 Other specified disorders of bladder; Z3A.38 38 weeks gestation of pregnancy; Z37.0 Single live birth; Z79.4 Long term (current) use of insulin
CPT/HCPCS: 36415; 80053; 85025; 85027; 86592; 86703; 86850; 86900; 86901; 88302; 88307; A9270; G0432; J0690; J1815; J1885; J2274; J2590; J7120